=== PATIENT | female | born 1940 | race Caucasian/White ===

== ENCOUNTER 2020-02-11 12:29 | Inpatient (IN) | payer MEDICARE, OTHER ==
[~2020-02-11] VITALS: Ht 170.2 cm; Wt 82.3 kg
[~2020-02-11 12:29] MED LIST: ASPIRIN 81M81 MG/TA2 PO
[2020-02-11] MEDS ORDERED: ELIQUIS 5MG PO (13:14)
[2020-02-11] MEDS ORDERED: LOPRESSOR 225 MG/TAB PO (13:15)
[2020-02-11] MEDS ORDERED: ULTRAM 50MG TAB50 MG PO (13:15)
[2020-02-11] MEDS ORDERED: TYLENOL 325MG325 MG PO (13:15)
[2020-02-11] MEDS ORDERED: LASIX 20MG TABL20 MG PO (13:15)
--- NOTE | 2020-02-11 14:13 | NUR ---
Patient transferred to IPR room 339 via chair. Requests to stay sitting up in chair at this time. Son remains with patient. Denies additional needs at this time.
[2020-02-11 14:29] VITALS: BP 131/49; PULSE 73; TEMP 98.6
--- NOTE | 2020-02-11 16:33 | NUR ---
Sitting up in chair with eyes open. Son in room with the patient. Denies pain or any additional needs at this time.
--- NOTE | 2020-02-12 03:21 | NUR ---
Patient has been resting in bed this shift. Patient is two assist transfer to [facility]. Patient tolerated well. No complaints of pain or nausea this shift.
[2020-02-12 05:22] VITALS: BP 166/74; PULSE 79; TEMP 98.5
[2020-02-12 08:00] VITALS: BP 139/59
--- NOTE | 2020-02-12 09:52 | NUR ---
Patient was late awaking this morning, but did eat most of her breakfast. Son Nicolas is by her side. He brought some clothes for her to wear. He will be bringing a different pair of shoes for her to wear due to her bilateral foot edema. Patient was hesitent to start therapies this morning worried about nausea, but she was able to push through PT without any. Will continue to monitor.
--- NOTE | 2020-02-12 13:05 | NUR ---
Patient needed a mask for this morning so one was removed from omnicel at Surgical unit per PT request.
--- NOTE | 2020-02-12 14:43 | NUR ---
Patient resting in bed at this time, call light in reach and bed alarm is set. Son is by her side. This nurse observed some reddened and exoriated skin to her zoë area and bottom. Area was cleaned, patted dry and zinc was applied. Patient currently has her brief off so there is a less chance of her sweating in the zoë area. Patient denies pain at this time. Will continue to monitor.
--- NOTE | 2020-02-12 14:49 | NUR ---
Call placed to MIREYA Hernandez asking for something to treat a vaginal yeast infection. She will be putting in new orders.
--- NOTE | 2020-02-12 15:56 | NUR ---
Transferred patient to the BS due to pain. Patient was a one person pivot transfer from bed to BSC using gait belt and walker.
[2020-02-12 16:00] VITALS: BP 148/81; PULSE 77; TEMP 97.6
[2020-02-12 16:20] VITALS: BP 117/68; PULSE 77; TEMP 97.6
--- NOTE | 2020-02-12 16:49 | NUR ---
The patient is new to [facility], JESSICA met with the patient and the patient's son, Andrea to complete initial intake and to present IPR Team conference notes. The patient lives alone in [place]. The patient has three children that live in [place], [place]. The patient son Andrea is staying with the patient right now. Her other daughters will take turns visiting after Andrea leaves. The patient does not have advanced directives in the EMR. The patient and Andrea discussed the plan at discharge. JESSICA informed them that the team will make recommendations when it is closer time to discharge. Will continue to monitor.
--- NOTE | 2020-02-12 19:07 | NUR ---
Reported off to night nurse.
--- NOTE | 2020-02-12 19:25 | NUR ---
PATIENT RESTING IN BED DURING CHANGE OF SHIFT REPORT RECEIVED FROM DAY SHIFT NURSETORY. PATIENT WITH DECREASED ROM/STRENGTH TO L HIP/LLE D/T RECENT HIP SURGERY. DENIES NUMBNESS/TINGLING TO LLE. DENIES CHEST PAIN/SHORTNESS OF BREATHE AT THIS TIME. SPEECH WEAK BUT APPROPRIATE IN CONVERSATION, PATIENT A/O X4. DENIES ANY NEEDS OR CONCERNS AT THIS TIME. BED ALARM ON.
--- NOTE | 2020-02-13 01:00 | NUR ---
PATIENT SLEEPING, DOES NOT AWAKEN WHEN STAFF ENTERED ROOM, OBSERVED BREATHING NONLABORED AND EVEN. BED ALARM ON.
[2020-02-13 06:02] VITALS: BP 151/67; PULSE 79; TEMP 99
--- NOTE | 2020-02-13 07:00 | NUR ---
PATIENT RESTING IN BED DURING CHANGE OF SHIFT REPORT GIVEN TO DAY SHIFT NURSETORY. BED ALARM ON.
--- NOTE | 2020-02-13 07:34 | NUR ---
Patient's goal is to be able to get out of bed on her own. She is up early, sitting on the toilet eating her oatmeal. Patient wanted to have time to eat prior to doing her therapies.
--- NOTE | 2020-02-13 11:06 | NUR ---
Patient resting in recliner, call light in reach and alarm set with son by her side. Patient wearing slip proof socks. She tolerated her breakfast meal this morning.
--- NOTE | 2020-02-13 13:29 | NUR ---
Patient's weight upon admission to [facility] was reported as 79.7 which must have been taken from the bedscale on patient's admission to surgical. This morning patient was weighed on the standing scale and her weight was 90.6 kg or 199.3 lbs. Pharmacy was called regarding this weight adjustment.
[2020-02-13 17:21] VITALS: BP 153/73; PULSE 75; TEMP 98.2
--- NOTE | 2020-02-13 19:54 | NUR ---
Reported off to night nurse.
--- NOTE | 2020-02-13 20:00 | NUR ---
PT RESTING IN BED. THOUGHT PROCESS SLOW TO RESPOND. PT'S VOICE IS VERY SOFT AND RASPY. PT REPORTS AFTER SHE FELL AT HOME SHE LAID ON FLOOR FOR OVER 10HRS AND WAS YELLING FOR HELP ALL NIGHT WHEN THE NIGHBOR FOUND HER. NEEDS CUES FOR SAFETY. ASSISTED UP TO BSC. VOIDED. PERICARE DONE. PERIAREA VERY EXCORIATED. ZINC OINTMENT APPLIED. LEFT UNDERWEAR OFF FOR THE NIGHT. THE UNDERWEAR SHE HAD ON WERE EXTREMELY TIGHT. CALL LIGHT IN REACH. BED ALARM SET.
--- NOTE | 2020-02-14 04:38 | NUR ---
PT HAS RESTED WELL THIS SHIFT. NO DISTRESS. UP TO THE BSC A FEW TIMES TO VOID. NO BM.
[2020-02-14 05:56] VITALS: BP 167/79; PULSE 90; TEMP 98
[2020-02-14 07:30] LABS: BASO % 0.3 % (0.0-2.0); EOS # 0.3 (0.0-0.7); EOS % 2.8 % (0-4.0); GRAN # 6.4 (1.4-6.5); GRAN % 72.5 % (42.2-75.2); HEMOGLOBIN 11.5 g/dl (12.5-16.0); LYMPH # 1.2 (1.2-3.4); MEAN CELL VOLUME 91 fl (80.0-100.0); MEAN CORPUSCULAR HEMOGLOBIN 30 pg (27.0-31.0); MEAN CORPUSCULAR HGB CONC 33 g/dl (33.0-37.0); MONO # 0.8 (0.1-0.6); MONO % 9.2 % (1.7-9.3); PLATELET COUNT 119 K/mm3 (130-400); RED BLOOD COUNT 3.84 M/mm3 (4.10-5.30); REDCELL DISTRIBUTION WIDTH-CV 13.5 % (11.5-14.5)
[2020-02-14 07:38] LABS: HEMATOCRIT 35.1 % (37.0-47.0)
[2020-02-14 07:45] LABS: CALCIUM 8.4 mg/dL (8.4-10.2); CREATININE, serum 0.69 (0.52-1.25); MAGNESIUM 2.1 mg/dL (1.6-2.3); POTASSIUM 4.3 mmol/L (3.4-5.0)
--- NOTE | 2020-02-14 08:15 | NUR ---
Patient assisted to bedside commode, steady on her feet. Am medications given. denied the need for pain medication at this time. Patient did not want to get out of her pajamas this am. New breakfast ordered for patient, she is vegitarian. This was clarified with the kitchen.
--- NOTE | 2020-02-14 12:00 | NUR ---
Patient pain elevated after therapy. Prn pain medication given.
--- NOTE | 2020-02-14 17:08 | NUR ---
Patient rested well this afternoon after Prn Ultram. She worked hard with therapy. Her son has been attentive at bedside today.
[2020-02-14 17:25] VITALS: BP 146/50; PULSE 71; TEMP 98.6
--- NOTE | 2020-02-14 21:15 | NUR ---
PT RESTING IN BED. VOICE IS STILL VERY WEAK AND RHASPY. HAVING RT HIP PAIN INCREASED TO 5/10. MOD 1 ASSIST TO SITTING AND STANDING WITH FWW. NEEDS MUCH CUING FOR TRANSFER TO BSC. VOIDS. REMINDED PT LEAVING PULL UPS OFF TO AIR OUT EXCORIATED PERIRECTAL AREA. PT AGREED. NEDED MAX ASSIST WITH HYGIENE. BACK TO BED. NEEDED ASSIST WITH LIFTING LEGS INTO THE BED. ICE PACK TO RT HIP AND SEE MAR FOR PAIN MED GIVEN. CALL LIGHT IN REACH. BED ALARM SET.
--- NOTE | 2020-02-15 06:02 | NUR ---
PT HAS HAD A GOOD NIGHT. UP SEVERAL TIMES TO BSC. REVIEWED IMPORTANCE OF KEEPING LEGS ELEVATED. DENIES NEED FOR PAIN MEDICATION AT THIS TIME.
[2020-02-15 06:03] VITALS: BP 154/60; PULSE 67; TEMP 98.6
[2020-02-15 17:37] VITALS: BP 117/57; PULSE 74; TEMP 99.2
--- NOTE | 2020-02-15 18:15 | NUR ---
PATIENT HAD A GOOD SHIFT. PATIENT PROVIDED WITH PRN PAIN MEDICATION PRIOR TO WORKING WITH THERAPIES TODAY. PATIENT EDUCATED ON ELEVATION OF EXTREMITIES ANY THE IMPORTANCE OF WEARING THE ASHU HOSE AND SCD'S. SON PRESENT AT THE BEDSIDE THROUGHOUT MOST OF THE DAY. ZINC CREAM APPLIED EXCORIATION TO NANCY-RECTAL AREA. PATIENT RESTING IN BED AT THIS TIME.
--- NOTE | 2020-02-15 18:27 | NUR ---
REPORT GIVEN TO MARYSOL RUSS.
--- NOTE | 2020-02-15 21:24 | NUR ---
PT RESTING IN BED. VISITING WITH SON. PT REPORTS VERY FATIGUED FROM THERAPY TODAY. SEE MAR FOR PAINS MEDS. ASHU HOSE OFF. SCD'S ON. PT STILL HAS VERY WEAK AND RASPY VOICE. 1 MOD UP W/WALKER TO BSC VOIDED MOD AMT. NEEDED ASSIST LIFTING LEGS UP INTO BED. CALL LIGHT IN REACH. BED ALARM SET.
[2020-02-16 06:04] VITALS: BP 144/68; PULSE 68; TEMP 98.6
--- NOTE | 2020-02-16 06:08 | NUR ---
PT ALITTLE CONFUSED. PT THOUGHT THERE WAS A TORNANDO. REASSUSRED HER IT WAS JUST RAINING. PT WAS SURE HER SON WOULDNT COME TO VISIT BECAUSE OF THE BAD WEATHER. REASSURED PT THE WEASTHER WAS NOT SEVERE. ASSISTED TO BSC. TRANSFERRING MUCH EASIER. STILL NEEDS ASSIST WITH LIFTING LEGS INTO BED. DENIES PAIN.
--- NOTE | 2020-02-16 10:27 | NUR ---
Patient reported that she did not sleep well last night due to being given her lasix so late in the evening. See change of times for her lasix. Patient got up every hour last night to urinate with staff assistance. Patient is a one person max assist with walker and gait belt. Patient's son is by her side at this time. Patient asked if she wanted to get ready for the day and she wanted to wait until her son picked her clothes out for her. Denies pain at this time. Will continue to monitor.
[2020-02-16 17:58] LABS: MUCOUS Present /lpf; PH 6 (5-8); URINE APPEARANCE Hazy; URINE BACTERIA Moderate /hpf; URINE BILIRUBIN Negative (NEGATIVE); URINE BLOOD Negative (NEGATIVE); URINE COLOR Yellow; URINE GLUCOSE Negative (NEGATIVE); URINE KETONE Negative (NEGATIVE); URINE LEUKOCYTE ESTERASE Negative (NEGATIVE); URINE NITRATE Negative (NEGATIVE); URINE PROTEIN(semi-quant) Negative (NEGATIVE); URINE RBC 0-2 /hpf; URINE UROBILINOGEN Negative (NEGATIVE)
[2020-02-16 18:24] VITALS: BP 130/63; PULSE 78; TEMP 98.3
--- NOTE | 2020-02-16 19:48 | NUR ---
Patient resting in bed at this time, call light in reach and alarm set. Patient reported that she was not getting any sleep at night due to needing to use the bathroom every hour. See new order per Jolie that it is okay to use an external catheter at night. Night nurse was updated on this change. Reported off to night nurse.
--- NOTE | 2020-02-16 20:00 | NUR ---
PT RESTING IN BED. DENIES PAIN AT THIS TIME. PROVIDED INFORMATION ON EXTERNAL FEMALE CATHETER THAT WAS ORDERED EARLIER TODAY. PT AGREEABLE TO TRY IT LATER. PT WILL CALL STAFF WHEN NEEDING TO VOID. CALL LIGHT IN REACH. BED ALARM SET. NO NEEDS AT THIS TIME.
--- NOTE | 2020-02-16 22:30 | NUR ---
FEMALE EXTERNAL CATHETER ATTEMPTED AFTER PROVIDING INSTRUCTIONS. PT UNABLE TO VOID AT THIS TIME. PT WANTS TO WAIT AND TRY LATER.
[2020-02-17 06:00] VITALS: BP 138/59; PULSE 72; TEMP 97.9
--- NOTE | 2020-02-17 10:26 | NUR ---
Patient working with therapy this morning. Patient denied pain this morning and refused pain meds prior to therapy. Following PT patient was reporting 9/10 pain and was given prn pain pills with good effect. Patient was found transferred from her bed side commode to her bed without using her call light this morning. Patient was educated on the need to use her call light when wanting to ambulate, she voiced understanding. Patient was worried last night about having to get up a lot due to her lasix, so she was given an order for night time use of an external catheter. The night nurse reported that she was not able to use it properly so they decided not to use it last night. Pharmacy rescheduled her lasix so that she didn't receive it so late in the evening. Patient's son is currently with her right now.
--- NOTE | 2020-02-17 10:49 | NUR ---
JESSICA met with the patient and the patient's son to follow up from the weekend. The patient was a bit tired. Her son states she ambulated without pain medications this AM. They have begun to discuss what to do after discharge and we discussed those options. The family is involved with this decision. Will continue to follow.
--- NOTE | 2020-02-17 13:49 | NUR ---
JESSICA contacted the patient's three children to set up the family meeting for 02/18 at 1345. The patient's son, Andrea will not be able to attend in person nor via telephone. The patient's daughter, Whit is agreeable to this time and date. JESSICA left message for the patient's daughter, Jazmyne. Will continue to follow.
[2020-02-17 15:17] VITALS: BP 133/54; PULSE 66; TEMP 97.5
--- NOTE | 2020-02-17 19:10 | NUR ---
PATIENT RESTING IN BED DURING CHANGE OF SHIFT REPORT RECEIVED FROM DAY SHIFT NURSETORY. BED ALARM ON.
--- NOTE | 2020-02-17 20:00 | NUR ---
DECREASED ROM/STRENGHT TO LLE/HIP D/T HIP SURGERY. DENIES NUMBNESS/TINGLING TO RICH EXTREMITIES. BED ALARM ON.
[2020-02-17 22:28] LABS: COLLECTION METHOD CLEAN CATCH
--- NOTE | 2020-02-18 03:45 | NUR ---
REPORTED BOTH BY CHARGE NURSE, DOLLY, AND PATIENT, PATIENT HAD GOTTEN HERSELF UP OUT OF BED, WITH BED ALARM GOING OFF, AND WALKED INTO BATHROOM. PATIENT REMINDED BY STAFF TO CALL FOR HELP WHEN NEEDING TO GO TO BATHROOM, PATIENT VERBALIZED UNDERSTANDING, AGREEING TO CALL FOR ASST TO GO TO BATHROOM NEEDED IN THE FUTURE. BED ALARM ON TO MEDIUM SENSITIVITY.
[2020-02-18 05:31] VITALS: BP 146/58; PULSE 73; TEMP 98.1
--- NOTE | 2020-02-18 07:14 | NUR ---
PATIENT RESTING IN BED DURING CHANGE OF SHIFT REPORT GIVEN TO DAY SHIFT NURSETHIAGO. BED ALARM ON.
--- NOTE | 2020-02-18 07:15 | NUR ---
shift report received from MARYSOL Ring
--- NOTE | 2020-02-18 08:40 | NUR ---
up to bathroom and voided qs, full assessment completed, see interventions for furtherinfo, daughter in to visit, physical therapy now in to work with patient
--- NOTE | 2020-02-18 10:31 | NUR ---
out of room to work with therapy
--- NOTE | 2020-02-18 11:30 | NUR ---
returned from group therapy and resting inWC
--- NOTE | 2020-02-18 13:02 | NUR ---
physical therapy in to work with patient
--- NOTE | 2020-02-18 15:20 | NUR ---
stood at side of bed with daughter's assistance and into nightgown, airstrip dressing removed fromleft hip, incision with steri strips CD&I, new airstrip placed
[2020-02-18 17:28] VITALS: BP 148/69; PULSE 72; TEMP 98.2
--- NOTE | 2020-02-18 17:49 | NUR ---
resting in bed, only had ice cream for supper as she was full after having ensure
--- NOTE | 2020-02-18 18:51 | NUR ---
bedside shift report given to MARYSOL Ring
--- NOTE | 2020-02-18 19:03 | NUR ---
PATIENT SITTING UP IN BED WATCHING TV WITH BED ALARM ON DURING CHANGE OF SHIFT REPORT RECEIVED FROM DAY SHIFT NURSETHIAGO. NO NEEDS REPORTED DURING REPORT.
--- NOTE | 2020-02-18 20:00 | NUR ---
DECREASED ROM/STRENGTH TO LLE D/T SURGERY. DENIES NUMBNESS/TINGLING TO BLE/BUE. DENIES CHEST PAIN/SHORTNESS OF BREATHE AT THIS TIME. BED ALARM ON. DAUGHTER IN ROOM WITH PATIENT.
--- NOTE | 2020-02-19 00:30 | NUR ---
Patient sleeping with even/nonlabored breathing. Does not awaken when door to room is opened by staff. Bed alarm on.
[2020-02-19 02:16] VITALS: BP 140/33; BP 140/53; PULSE 69; TEMP 97.8
--- NOTE | 2020-02-19 07:44 | NUR ---
Patient resting in bed during change of shift report given to day shift nurseTita. Bed alarm on.
--- NOTE | 2020-02-19 10:41 | NUR ---
Patient working with therapy at this time. She had a shower today and following shower this nurse changed out air strip bandage to left hip. Steri strips are in place and no drainage was observed to the old dressing. No redness or drainage was observed to the incision site. Will continue to monitor.
--- NOTE | 2020-02-19 12:57 | NUR ---
Patient resting in recliner call light in reach and chair alarm set.
--- NOTE | 2020-02-19 13:07 | NUR ---
Daughter by patient's side. Patient was seen by Dr. Ramos see new orders for labs. Patient denies pain at this time.
--- NOTE | 2020-02-19 14:05 | NUR ---
A Family Conference was conducted with pt & pt's children: Ken (in person), & Andrea, & Whit (via phone). Also present was PT, OT, ST, & Shear Operator Automatic. Shear Operator Automatic started by explaining the purpose of the meeting. The therapists explained how pt has been functioning & making good progress. Informed them of d/c set for 02/21/20 w/ recommendations for home health PT/OT. They were a little surprised at first but as they asked questions seemed to be more comfortable w/ the plan. Told them team is recommending walker w/ wheels, which was ordered by family & should arrive Monday am. They asked questions which team answered. Pt & family are pleased with far pt has come & care pt is receiving.
--- NOTE | 2020-02-19 14:05 | NUR ---
The patient's daughter, Jazmyne left message for JESSICA regarding a letter for the post office to move the patient's mailbox closer to the home. JESSICA contacted Jazmyne to discuss the letter, left message. Will continue to follow.
--- NOTE | 2020-02-19 15:18 | NUR ---
Received call from patient's son Andrea asking questions about mothers cares. He participated in the family meeting this afternoon. [phone]
--- NOTE | 2020-02-19 16:51 | NUR ---
SW's met with the patient and the patient's daughter, Ginny, to present and review the IPR Team Conference Note. SW discussed the patient's progress and the team's recommendation for a discharge this Monday, 02/20, with home health PT/OT and the need for a walker and shower seat. Ginny reports that they have already ordered a walker for the patient and that it will be delivered to their home on Monday. The patient is also in need of a PCP. JESSICA provided the patient and Ginny with Medicare.gov's list of home health agencies that serve [place] and a list of the different PCP's in the [facility] area. The patient and daughter would like some time to look over and research the lists. JESSICA to continue to follow.
[2020-02-19 18:23] VITALS: BP 152/77; PULSE 85; TEMP 97.9
--- NOTE | 2020-02-19 18:28 | NUR ---
Patient was informed about the no visitor policy put in place starting today.
--- NOTE | 2020-02-19 19:29 | NUR ---
Reported off to night nurse.
--- NOTE | 2020-02-19 21:00 | NUR ---
PT RESTING IN BED. HOB ELEVATED. WATCHING TV. DENIES PAIN. CALL LIGHT IN REACH BED ALARM SET.
--- NOTE | 2020-02-20 00:28 | NUR ---
NEEDS ASSIST TO BR. NEEDS HELP TO SITTING POSITION BUT ABLE TO MANAGE WITH SBA WITH WALKER. VOIDED WITHOUT DIFFICULTY. ABLE TO MANAGE TOILETING HYGEINE PER SELF. NEEDS CUED FOR SAFETY. LEAVE WALKER TO THE SIDE SHE TURN TO SIT ON BED. NEEDS ASSIST LIFTING LEGS INTO BED. REFUSES SCD'S AT THIS TIME. DENIES NEED FOR PAIN MEDICATION. CALL LIGHT IN REACH. BED ALARM SET.
[2020-02-20 06:00] VITALS: BP 148/49; PULSE 69; TEMP 99
[2020-02-20 08:32] LABS: BASO % 0.1 % (0.0-2.0); EOS # 0.1 (0.0-0.7); EOS % 1.6 % (0-4.0); GRAN # 4.9 (1.4-6.5); GRAN % 71.4 % (42.2-75.2); HEMOGLOBIN 11.8 g/dl (12.5-16.0); LYMPH # 1.3 (1.2-3.4); LYMPH % 19.5 % (20.0-51.0); MEAN CELL VOLUME 91 fl (80.0-100.0); MEAN CORPUSCULAR HEMOGLOBIN 30 pg (27.0-31.0); MEAN CORPUSCULAR HGB CONC 33 g/dl (33.0-37.0); MEAN PLATELET VOLUME 12.1 fl (7.4-10.4); MONO # 0.5 (0.1-0.6); MONO % 6.7 % (1.7-9.3); PLATELET COUNT 189 K/mm3 (130-400); RED BLOOD COUNT 3.93 M/mm3 (4.10-5.30); REDCELL DISTRIBUTION WIDTH-CV 13.2 % (11.5-14.5)
[2020-02-20 08:33] LABS: HEMATOCRIT 35.8 % (37.0-47.0)
--- NOTE | 2020-02-20 08:53 | NUR ---
PATIENT DENIES PAIN AT REST. PATIENT STATES THAT SHE HAS PAIN WHEN WORKING WITH THERAPY AND UP ON HER FEET MOVING. PATIENT GIVEN PRN PAIN MEDICATION AT THIS TIME.
[2020-02-20 08:58] LABS: CALCIUM 8.8 mg/dL (8.4-10.2); CREATININE, serum 0.76 (0.52-1.25); MAGNESIUM 2.1 mg/dL (1.6-2.3); POTASSIUM 4.2 mmol/L (3.4-5.0)
[2020-02-20] MEDS ORDERED: SYSTANE 0.3-0.1 EACH OP (11:13)
[2020-02-20] MEDS ORDERED: ZINC OXIDE 28GM TOP (11:13)
[2020-02-20] MEDS ORDERED: ULTRAM 50MG TAB50 MG PO (11:23)
[2020-02-20] MEDS ORDERED: LASIX 20MG TABL20 MG PO (11:23)
--- NOTE | 2020-02-20 11:36 | NUR ---
JESSICA contacted Jazmyne to follow up about HHS choice and PCP choice. The BATTING MACHINE OPERATOR INSULATION choice is [facility]. JESSICA faxed referral. Samano to have PCP choice by end of this day. Will continue to monitor.
--- NOTE | 2020-02-20 15:56 | NUR ---
Gilda from [facility] contacted JESSICA and they can accept the patient for [facility]. Jazmyne contacted JESSICA. Jazmyne states the patient's PCP will be Dr. Whittaker and office electrician Dr. Russ. JESSICA informed Jazmyne about [facility]. JESSICA collaborated the above information with the patient's nurse.
--- NOTE | 2020-02-20 16:42 | NUR ---
Gilda, at [facility], reports that since the patient does not already have an established PCP; they will not be able to do start of care with her until she has her appointment with Dr. Whittaker. JESSICA attempted to contact Capri, Clinic Manager Business Continuity, at [facility] to set up an appointment. JESSICA left her a voicemail.
--- NOTE | 2020-02-20 17:00 | NUR ---
PATIENT CALLED OUT REQUESTING EYE DROPS. PATIENT STATES THAT HER EYES ARE VERY DRY AND BOTHERING HER. EYE DROPS ADMINISTERED.
[2020-02-20 17:40] VITALS: BP 134/45; PULSE 78; TEMP 98
--- NOTE | 2020-02-20 21:00 | NUR ---
PT RESTING IN BED. ALITTLE DISTRACTED BY THE TV. DENIES PAIN AT THIS TIME. CALL LIGHT IN REACH. BED ALARM SET.
--- NOTE | 2020-02-20 23:11 | NUR ---
BED ALARM SOUNDING. PT TRYING TO GET OUT OF BED HERSELF. ALITTLE CONFUSED. SBA TO BR WITH WALKER. STEADY SLOW GAIT. DENIES PAIN. NEEDS ASSIST WITH LEGS BACK INTO BED. INDEPENDENT WITH TOILETING HYGEINE. CALL LIGHT IN KAREN. BED ALARM SET.
[2020-02-21 06:00] VITALS: BP 147/51; PULSE 70; TEMP 98.3
--- NOTE | 2020-02-21 08:00 | NUR ---
Patient resting in bedside recliner eating breakfast at this time. Patient is alert and oriented, answers questions apporpriately. Patient denies pain or needs at this time, states her daughter will be the one picking her up today, and she is awaiting a phone call and does not have an established time she will come to pick her up. Assured patient that we would call her. Call light within reach.
--- NOTE | 2020-02-21 08:45 | NUR ---
JESSICA contacted Dr. Whittaker office to set up appointment for the patient, left message.
--- NOTE | 2020-02-21 09:31 | NUR ---
SW presented the IM form to the patient. The patient understood and signed the form. A copy was provided to the patient original was placed in the chart.
--- NOTE | 2020-02-21 13:10 | NUR ---
Discharge teaching completed. Discussed discharge medicaitons, discharge instruction, and discharge appointments. Patient verbalized understanding. Called patient's daughter and wend over discharge information, discussed discharge appointments and reminded her that the follow up appointment for primary care had not been scheduled due to the holiday, patient's daughter verbalized understanding. Gathered patient's belongings and helped her dress. Patient confirms that all personal belongings have been gathered. Patient escorted to ED entrance via wheelchair where she entered a private vehicle.
--- NOTE | 2020-02-21 13:55 | NUR ---
The patient is to discharge home today, 02/20. The patient's daughter, Jazmyne is to set up appointment with Dr. Whittaker on Monday. JESSICA couldn not reach his office staff to set it up. The patient will start PT/OT/Nursing services with [facility] as soon as the patient goes to see Dr. Whittaker. Gilda from [facility] has been in contact with Jazmyne about services. JESSICA faxed discharge orders to Gilda. There are no additional needs at this time.
--- NOTE | 2020-02-24 13:21 | NUR ---
Discharge QIM scores were reviewed by the team. Code of 6 chosen for oral hygiene was determined by team discussion to be the most usual performance for this patient during the assessment period. Code of 4 chosen for toileting transfers was determined by team discussion to be the most usual performance for this patient during the assessment period. Code of 6 chosen for upper body dressing was determined by team discussion to be the most usual performance for this patient during the assessment period. Code of 6 for lower body dressing was determined by team discussion to be the most usual performance for this patient during the assessment period. Code of 6 for sit to stand was determined by team discussion to be the most usual performance for this patient during the assessment period. Code of 4 for chair/bed to chair transfers was determined by team discussion to be the most usual performance for this patient during the assessment period.--Shakila Kapadia,
== END 2020-02-21 13:10 | disposition home health service (06) | DRG 559 ==
PROVIDERS: Physician Assistant; ADMIT Internal Medicine
DX: S72.012D Unspecified intracapsular fracture of left femur, subsequent encounter for closed fracture with routine healing (principal); I21.A1 Myocardial infarction type 2; M62.82 Rhabdomyolysis; G93.40 Encephalopathy, unspecified; I10 Essential (primary) hypertension; I16.0 Hypertensive urgency; I07.1 Rheumatic tricuspid insufficiency; I27.20 Pulmonary hypertension, unspecified; B37.3 Candidiasis of vulva and vagina; I48.91 Unspecified atrial fibrillation; K21.9 Gastro-esophageal reflux disease without esophagitis; D69.6 Thrombocytopenia, unspecified; R73.9 Hyperglycemia, unspecified; W18.30XD Fall on same level, unspecified, subsequent encounter; E78.5 Hyperlipidemia, unspecified; Z96.642 Presence of left artificial hip joint; Z79.01 Long term (current) use of anticoagulants; Z79.891 Long term (current) use of opiate analgesic
CPT/HCPCS: 99222-AI; 99231-AI; 99232-AI; 99239